=== PATIENT | female | born 1975 | race Two or more races ===

== ENCOUNTER 2022-10-09 10:16 | Outpatient (CLI) | payer OTHER | END 2022-10-09 10:30 | disposition home or self-care (01) | LOC: MAMO-SONO 10:16 | PROVIDERS: ATTEND Specialist | DX: Z12.31 Encounter for screening mammogram for malignant neoplasm of breast (principal) ==

== ENCOUNTER → 2023-04-06 06:12 | Outpatient (CLI) | payer OTHER | END | disposition home or self-care (01) | LOC: LAB 06:12 | DX: R87 Abnormal findings in specimens from female genital organs (principal) ==

== ENCOUNTER 2023-09-16 13:26 | Outpatient (CLI) | payer OTHER | END 2023-09-16 13:52 | disposition home or self-care (01) | LOC: RAD 13:26 | PROVIDERS: ATTEND Physical Medicine & Rehabilitation Hospice and Palliative Medicine | DX: M25.511 Pain in right shoulder (principal); M75.101 Unspecified rotator cuff tear or rupture of right shoulder, not specified as traumatic; M75.41 Impingement syndrome of right shoulder; M25.512 Pain in left shoulder | CPT/HCPCS: 73221 ==

== ENCOUNTER 2023-11-08 10:22 | Outpatient (CLI) | payer OTHER | END 2023-11-08 10:30 | disposition home or self-care (01) | LOC: MAMO-SONO 10:22 | PROVIDERS: ATTEND Specialist | DX: N60.19 Diffuse cystic mastopathy of unspecified breast (principal); N64.4 Mastodynia; Z12.31 Encounter for screening mammogram for malignant neoplasm of breast ==